=== PATIENT | female | born 1995 | race African-American/Black ===

== ENCOUNTER 2020-08-07 17:58 | Emergency (ER) | payer OTHER ==
[~2020-08-07] VITALS: Ht 177.8 cm; Wt 68.0 kg
[2020-08-07 18:35] LABS: ABSOLUTE NEUTROPHILS 2.4 thou/uL (1.4-8.2); BASOPHILS 0.6 % (0.0-2.0); EOSINOPHILS 3.9 % (0.0-3.0); HEMATOCRIT 40.8 % (37.0-47.0); MCH 30.3 pg (26.0-34.0); MCHC 34.3 g/dL (28.0-37.0); MCV 88.4 fL (80.0-100.0); MONOCYTES 10.3 % (1.0-8.0); PLATELET COUNT 213 thou/uL (150-400); POLYS 41.2 % (36.0-66.0); RBC 4.62 mil/uL (4.20-5.00); RDW 12.5 % (10.5-14.5); WBC 5.7 thou/uL (4.0-11.0)
[2020-08-07 18:42] LABS: CALCIUM 8.6 mg/dL (8.5-10.1); CREATININE 0.9 mg/dL (0.6-1.0); POTASSIUM 3.3 mmol/L (3.5-5.1)
[2020-08-07 18:47] LABS: ALBUMIN 3.7 g/dL (3.4-5.0); TOTAL BILIRUBIN 0.4 mg/dL (0.2-1.0)
[2020-08-07 18:57] LABS: URINE BILIRUBIN NEGATIVE (Negative); URINE BLOOD NEGATIVE (Negative); URINE CLARITY CLEAR; URINE COLOR YELLOW; URINE GLUCOSE-RANDOM* NEGATIVE (Negative); URINE KETONES NEGATIVE (Negative); URINE NITRITE-REFLEX NEGATIVE (Negative); URINE PROTEIN (DIPSTICK) NEGATIVE (Negative); URINE UROBILINOGEN 0.2 E.U./dl (0.2-1.0)
[2020-08-07 18:59] LABS: URINE LEUKOCYTES-REFLEX 1+ (Negative)
[2020-08-07 19:21] LABS: BACTERIA-REFLEX 1-9 Few /HPF (None Seen); SQUAMOUS 4-10 Moderate /LPF (0-3); URINE RBC None Seen /HPF (0-2); URINE WBC-REFLEX 0-5 Rare /HPF (0-5)
[2020-08-07 19:22] LABS: CASTS None Seen /LPF (None Seen); CRYSTALS None Seen /LPF (None Seen)
[2020-08-07 19:46] VITALS: BP 97/66
--- NOTE | 2020-08-08 07:17 | EKG ---
[address] [place] [address] ELECTROCARDIOGRAM REPORT Name: KIT PAVON Room #: [facility] Sandra#: [id number] Admission: 08/07/20 Attend Phys: Discharge: 08/07/20 Date of : [birth year] Report #: [id number] [facility] ED Test Date: 2020-08-07 Test Time: 18:33:50 Pat Name: KIT PAVON Department: Room: Gender: F Casting Finisher: SARA : 1995 Requested By: Stanley Harrell Order Number: [id number] MD: Marquise Clayton Measurements Intervals [place] Rate: 100 P: 65 [place]: 142 QRS: 46 QRSD: 85 T: 22 QT: 348 QTc: 449 Interpretive Statements Sinus tachycardia No previous ECG available for comparison Electronically Signed On 08-08-2020 7:17:28 [employer] by Marquise Clayton [email or web address] <ELECTRONICALLY SIGNED> By: Marquise Clayton MD, [facility] 08/08/20 0717 1833 1833 Marquise Clayton MD, FACC /EPI
--- NOTE | 2020-08-08 16:26 | EKG ---
[place] [address] [facility] [place] [address] ELECTROCARDIOGRAM REPORT Name: KIT PAVON Room #: DEP Sandra#: [id number] Admission: 08/07/20 Attend Phys: Discharge: 08/07/20 Date of : [birth year] Report #: [id number] [facility] ED Test Date: 2020-08-07 Test Time: 18:05:27 Pat Name: KIT PAVON Department: Room: Gender: F Supervisor Type Photography: SARA : 1995 Requested By: Stanley Harrell Order Number: [id number] MD: Marquise Clayton Measurements Intervals [place] Rate: 211 P: 223 [place]: 71 QRS: 68 QRSD: 80 T: 33 QT: 244 QTc: 458 Interpretive Statements Supraventricular tachycardia ST depression, probably rate related No previous ECG available for comparison Electronically Signed On 08-08-2020 16:25:50 [employer] by Marquise Clayton [email or web address] <ELECTRONICALLY SIGNED> By: Marquise Clayton MD, [facility] 08/08/20 1625 1805 1805 Marquise Clayton MD, FACC /EPI
== END 2020-08-07 19:48 | disposition home or self-care (01) ==
LOC: ER 17:58
PROVIDERS: Emergency Medicine
DX: I47.1 Supraventricular tachycardia (principal); Z88.1 Allergy status to other antibiotic agents; Z88.2 Allergy status to sulfonamides

== ENCOUNTER → 2020-08-16 | Outpatient (CLI) | payer OTHER | LOC: SJCVCIMAG 06:27 | PROVIDERS: ATTEND Internal Medicine Cardiovascular Disease | DX: I08.8 Other rheumatic multiple valve diseases (principal); I47.1 Supraventricular tachycardia ==

== ENCOUNTER → 2020-09-25 | Outpatient (CLI) | payer OTHER | LOC: LAB 08:55 | PROVIDERS: ATTEND Internal Medicine Cardiovascular Disease | DX: Z01.812 Encounter for preprocedural laboratory examination (principal); Z20.822 Contact with and (suspected) exposure to COVID-19 ==

== ENCOUNTER 2020-09-29 06:36 | Observation (INO) | payer OTHER ==
[~2020-09-29] VITALS: Ht 177.8 cm; Wt 67.4 kg
[2020-09-29 07:18] VITALS: BP 106/71
[2020-09-29 07:30] LABS: ABSOLUTE NEUTROPHILS 1.6 thou/uL (1.4-8.2); BASOPHILS 0.8 % (0.0-2.0); EOSINOPHILS 3.3 % (0.0-3.0); HEMATOCRIT 39.5 % (37.0-47.0); HEMOGLOBIN 13.4 gm/dL (12.0-15.0); LYMPHOCYTES 35.5 % (24.0-44.0); MCHC 33.8 g/dL (28.0-37.0); MCV 88.7 fL (80.0-100.0); PLATELET COUNT 184 thou/uL (150-400); POLYS 48.4 % (36.0-66.0); RBC 4.46 mil/uL (4.20-5.00); RDW 12.9 % (10.5-14.5); WBC 3.3 thou/uL (4.0-11.0)
[2020-09-29] MEDS ORDERED: ELURYNG VAGINA1 EACH (07:31)
[2020-09-29] MEDS ORDERED: TOPROL XL25 MG PO (07:32)
[2020-09-29 07:44] LABS: CALCIUM 8.6 mg/dL (8.5-10.1); CREATININE 0.8 mg/dL (0.6-1.0); POTASSIUM 3.7 mmol/L (3.5-5.1)
[2020-09-29 07:50] LABS: ALBUMIN 3.4 g/dL (3.4-5.0); TOTAL BILIRUBIN 0.5 mg/dL (0.2-1.0)
[2020-09-29 08:16] LABS: APTT 27.9 Seconds (24.5-32.8); PROTIME 10.6 Seconds (9.3-11.4)
[2020-09-29] MEDS ORDERED: XARELTO20 MG PO (16:05)
[2020-09-29 16:45] VITALS: BP 108/77
--- NOTE | 2020-09-29 18:06 | NUR ---
RECEIVED PT FROM [facility]. PT IS AXOX4, PLEASANT. NO COMPLAINTS OF PAIN. MOTHER AT THE BEDSIDE. ADMISSION COMPLETED. POC IS OBSERVATION WITH PLANS TO DISCHARGE 09/30/2020. PT IS UP WITH STDBY ASST. NO CONCERNS AT THIS TIME.
[2020-09-29 20:00] VITALS: BP 108/62
[2020-09-29 23:29] VITALS: BP 92/62
--- NOTE | 2020-09-30 04:33 | NUR ---
Assumed pt care at 1900. Pt is alert and oriented. No sign of distress noted in pt. Denies pain. Right groin site is intact, no bruising, bleeding or hematoma noted. Pt is stable through the night. Assessment completed and documneted. No further needs at this time. Possible discharge today.
[2020-09-30 05:05] VITALS: BP 100/64
[2020-09-30 07:30] VITALS: BP 113/71
--- NOTE | 2020-09-30 07:45 | NUR ---
DR ATKINSON (CARDIOLOGY) SEEN PT. CLEARED FOR DISCHARGE. PT EDUCATION CONDUCTED.
[2020-09-30 09:37] VITALS: BP 113/71
--- NOTE | 2020-10-02 13:54 | P ---
[facility] [place] [address] PROCEDURE REPORT Name: KIT PAVON Evelia Room #: [facility] Leo Flores#: [id number] Admission: 09/29/20 Attend Phys: Inderjit Winn MD Discharge: 09/30/20 Date of : [birth year] Report #: [id number] THIS REPORT FOR: cc: Lyle Calvert MD, Neal A. MD Couchonnal, Luis F. MD ~ PREOPERATIVE DIAGNOSIS: Supraventricular tachycardia. 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 PROCEDURES PERFORMED: 1. [place] [address]. 2. EP with left atrial pacing and recording, CPD code 17703. 3. Program stimulation pacing after IV drug infusion, CPT code 26112. 4. 3D mapping, CPT code 60382. HISTORY: The patient is a 25-year-old female who has had episodes of SVT for approximately 5 years, recently went to the Emergency Room with an EKG consistent with AV leti reentrant tachycardia and received IV adenosine with termination. She is here for EP study and ablation. ANESTHESIA: The patient underwent MAC anesthesia with no anesthesia-related complications. DESCRIPTION OF PROCEDURE: The patient underwent informed consent. We discussed the details of the procedure including the risks, which include but not limited to bleeding, vascular damage, stroke, OK, cardiac perforation as well as damage to the karuk conduction system requiring a permanent pacemaker. She understood these risks and was willing to proceed. The patient was brought to the EP laboratory in a fasting nonsedated state and prepped and draped in sterile fashion. Next, I obtained access to the right femoral vein x 4, placing an 8, two 6 and a 7-Austrian short sheath using the modified Seldinger technique. Next, under fluoroscopy, 3 quadripolar catheters were placed at the HRA, His and RV positions and a decapolar catheter was placed in the coronary sinus for left atrial pacing and recording. Next, a basic EP study was performed. At baseline, the patient was in sinus rhythm with a sinus cycle length of 600 milliseconds, HI interval 125 milliseconds, QRS duration 75 milliseconds, QT interval 375 milliseconds, AH interval 80 milliseconds, HV interval 38 milliseconds. Next, atrial pacing was performed and AV block was noted at 390 milliseconds. Atrial ERP is noted at 290 milliseconds at [address] cycle length. Ventricular pacing was performed and VA block was noted at 310 milliseconds. Ventricular ERP was noted at 230 milliseconds or [address] cycle length with both midline and decremental VA conduction. Aggressive atrial pacing was performed and single and double atrial extrastimuli were delivered and I could not induce SVT. [facility] [address] [place] [address] PROCEDURE REPORT Name: KIT PAVON Room #: 212-P CATHERINE Flores#: [id number] Admission: 09/29/20 Attend Phys: Inderjit Winn MD Discharge: 09/30/20 Date of : [birth year] Report #: [id number] Isoproterenol infusion was initiated at 2 mcg per minute and the atrial cycle length decreased to 380 milliseconds. Atrial burst pacing was performed and AV block was noted at 250 milliseconds. Double and atrial extrastimuli were delivered and no SVT was induced. I then decreased the isoproterenol to 1 mcg per minute and continued testing. AV leti ERP is noted at 230 milliseconds at [address] cycle length and with atrial burst pacing, I would get some short bursts of high to low atrial tachycardia. Therefore, I turned off the isoproterenol and approximately 7 minutes after discontinuing isoproterenol with atrial burst pacing, the patient went into SVT with a tachycardia cycle length of 300 milliseconds and a septal VA time of 35 milliseconds. The patient would have periods of right bundle-branch block aberration and narrow QRS complex during SVT with no change in the tachycardia cycle length. Next, ventricular entrainment was performed and there was a VAHV response consistent with typical AVNRT. At this point, it was actually difficult to terminate it. Pacing down to 230 milliseconds in the VA and this would not terminate the SVT; therefore, I had a pace from the atrium at 220 milliseconds and this finally terminated it. I reinduced easily again and again I had difficulties terminated the AVNRT. As such, a diagnosis of typical AV leti reentrant tachycardia was made and this was consistent with the EKG that we saw in the Emergency Room. 3D mapping and SVT ablation. Next, I removed the HRA catheter and sheath and placed a SR0 sheath and a 4 mm [employer] Hewitt ablation catheter into the right atrium. A detailed 3D geometry of the right atrium was created with specific emphasis of the slow pathway region and His bundle region. Next, ablation was performed at 50 south and 55 degrees and during my first several lesions when I would ablate the patient would go into AVNRT and I would come off ablation and we would terminate this with ventricular pacing. This happened during my first 5 lesions after about 10-20 seconds of ablation. On ablation lesions to 6 and 7, we did not have any further SVT and we had intermittent junctionals; therefore, a post-ablation testing was performed. Post-ablation, atrial burst pacing was performed and quickly the patient went back into the typical AV leti reentrant tachycardia. Therefore, I performed four additional lesions that were slightly higher than my initial lesion sets and during these lesions, I had more consistent with slow junctionals at 60 beats per minute. As such, post-ablation testing was again performed. Post-ablation, the patient was in sinus rhythm, AV block was noted at 290 milliseconds. Single atrial stimuli and double atrial extrastimuli were delivered and no SVT was induced. Isoproterenol was initiated again at 1 mcg per minute and AV block was 250 milliseconds. Aggressive atrial burst pacing and extrastimuli were delivered and we could not induce SVT. Isoproterenol was turned off and we continued testing and no further SVT was inducible. As such, procedure was concluded. At the beginning of the case, I did give the patient some 3000 units of heparin. Post-ablation, catheters and sheaths were pulled. Hemostasis was obtained and the patient awoke [facility] [address] [place] [address] PROCEDURE REPORT Name: KIT PAVON Evelia Room #: 212-P [facility] Leo Flores#: [id number] Admission: 09/29/20 Attend Phys: Inderjit Winn MD Discharge: 09/30/20 Date of : [birth year] Report #: [id number] neurologically and hemodynamically intact. No complications and no significant bleeding. CONCLUSIONS: 1. Successful ablation of typical AV leti reentrant tachycardia. 2. No other inducible arrhythmias, on or off isoproterenol. 3. Normal SA leti function. 4. Normal AV leti function. 5. Normal His-Purkinje function. <ELECTRONICALLY SIGNED> By: Inderjit Winn MD 10/02/20 1354 1200 1819 MD lilly Shrestha
== END 2020-09-30 10:40 | disposition home or self-care (01) ==
LOC: CATH 06:36 → 2N 17:12
PROVIDERS: ADMIT Internal Medicine Cardiovascular Disease; ATTEND Internal Medicine Cardiovascular Disease
DX: I47.1 Supraventricular tachycardia (principal); Z79.01 Long term (current) use of anticoagulants; Z79.899 Other long term (current) drug therapy
CPT/HCPCS: 62110; 62900; 70005

== ENCOUNTER → 2020-10-12 | Outpatient (CLI) | payer OTHER ==
[~2020-10-12] MED LIST: ELURYNG VAGINA1 EACH; TOPROL XL25 MG PO; XARELTO20 MG PO
== END ==
LOC: SJCVCIMAG 13:11
PROVIDERS: ATTEND Internal Medicine Cardiovascular Disease
DX: R00.2 Palpitations (principal); R19.09 Other intra-abdominal and pelvic swelling, mass and lump; R06.00 Dyspnea, unspecified; R07.89 Other chest pain; M79.662 Pain in left lower leg

== ENCOUNTER → 2020-10-30 | Outpatient (CLI) | payer OTHER | LOC: SJCVCIMAG 09:32 | PROVIDERS: ATTEND Internal Medicine Cardiovascular Disease | DX: R07.89 Other chest pain (principal); I47.1 Supraventricular tachycardia; R53.83 Other fatigue; R06.00 Dyspnea, unspecified ==